=== PATIENT | male | born 1975 | race Two or more races ===

== ENCOUNTER 2017-06-03 12:21 | Emergency (ER) | payer OTHER ==
[~2017-06-03] VITALS: Ht 167.6 cm; Wt 68.0 kg
[2017-06-03] MEDS ORDERED: DIPHTH,PERTUSS(ACELL),TET TOX 0.5 ML DISP.SYRIN. VAX IM ONE (12:45)
[2017-06-03] MEDS ORDERED: IV NORMAL SALINE 1000ML BAG 1,000 ML IV ONE (12:45)
--- NOTE | 2017-06-03 12:55 | PHYS DOC ---
Past Medical History Past Medical History: No Pertinent History Past Surgical History: No Surgical History Alcohol Use: None Drug Use: None Adult General Chief Complaint Chief Complaint: SYNCOPE HPI HPI Patient is a 42 year old male who presents with passing out. Patient states he is in the park with his kids running and stopped to get a drink of water and passed out. Patient woke up on the ground with laceration to the back of the head. Patient states this never happened before. Patient states prior to passing out he became lightheaded and dizzy. Patient denied any chest pain or shortness of breath. Patient denies any abdominal pain. Patient denied any nausea/vomiting/diarrhea. Patient was brought to the hospital for further evaluation however has no complaints in the emergency room. Review of Systems Review of Systems GEN: Denies fevers, chills, sweats HEENT: Denies blurred vision, sore throat CV: Denies chest pain RESP: Denies shortness of air, cough GI: Denies n/v/d NEURO: dizziness MSK: Denies weakness, joint pain/swelling Current Medications Current Medications Current Medications Medications (Trade) Dose Ordered Sig/Anthony Start Time Stop Time Status Last Admin Dose Admin Diphtheria/ Tetanus/Acell Pertussis (Boostrix) 0.5 ml ONCE ONCE 06/03/17 12:45 06/03/17 12:48 DC 06/03/17 13:00 0.5 ML Sodium Chloride 1,000 ml @ 1,000 mls/hr 1X ONCE 06/03/17 12:45 06/03/17 13:44 DC 06/03/17 12:58 1,000 MLS/HR Allergies Allergies Allergies Coded Allergies Type Severity Reaction Last Updated Verified No Known Drug Allergies 06/03/17 No Physical Exam Physical Exam GEN.: No apparent distress. Alert and oriented. HEENT: 3 cm laceration to the right occiput NECK: Supple. LUNGS: CTAB. HEART: RRR, S1, S2 present. Peripheral pulses intact ABDOMEN: Soft, nontender. Positive bowel sounds. EXTREMITIES: Without any cyanosis. Superficial skin abrasions to the left knee and left ankle NEUROLOGIC: Normal speech, normal tone PSYCHIATRIC: Normal affect, normal mood. SKIN: No ulcerations Current Patient Data Vital Signs Vital Signs Date Time Temp Pulse Resp B/P (MAP) Pulse Ox O2 Delivery O2 Flow Rate FiO2 06/03/17 12:38 98.3 67 18 139/84 (102) 93 Room Air 98.3 Lab Values Laboratory Tests Test 06/03/17 12:52 White Blood Count 14.2 x10^3/uL (4.0-11.0) H Red Blood Count 5.60 x10^6/uL (4.30-5.70) Hemoglobin 16.4 g/dL (13.0-17.5) Hematocrit 48.3 % (39.0-53.0) Mean Corpuscular Volume 86 fL (79-100) Mean Corpuscular Hemoglobin 29 pg (25-35) Mean Corpuscular Hemoglobin Concent 34 g/dL (31-37) Red Cell Distribution Width 14.2 % (11.5-14.5) Platelet Count 186 x10^3/uL (140-400) Neutrophils (%) (Auto) 82 % (31-73) H Lymphocytes (%) (Auto) 12 % (24-48) L Monocytes (%) (Auto) 4 % (0-9) Eosinophils (%) (Auto) 1 % (0-3) Basophils (%) (Auto) 1 % (0-3) Neutrophils # (Auto) 11.6 x10^3uL (1.8-7.7) H Lymphocytes # (Auto) 1.8 x10^3/uL (1.0-4.8) Monocytes # (Auto) 0.6 x10^3/uL (0.0-1.1) Eosinophils # (Auto) 0.2 x10^3/uL (0.0-0.7) Basophils # (Auto) 0.1 x10^3/uL (0.0-0.2) Sodium Level 140 mmol/L (136-145) Potassium Level 4.2 mmol/L (3.5-5.1) Chloride Level 104 mmol/L (98-107) Carbon Dioxide Level 29 mmol/L (21-32) Anion Gap 7 (6-14) Blood Urea Nitrogen 15 mg/dL (8-26) Creatinine 1.0 mg/dL (0.7-1.3) Estimated GFR (Cockcroft-Gault) 81.2 Glucose Level 149 mg/dL (70-99) H Calcium Level 9.3 mg/dL (8.5-10.1) Laboratory Tests 06/03/17 12:52 Laboratory Tests 06/03/17 12:52 EKG EKG 1243: EKG shows normal sinus rhythm rate of 59 no STEMI[] Radiology/Procedures Radiology/Procedures Indication: Scalp laceration Procedure: The patient was placed in the appropriate position . The area was then cleaned and washed out. The laceration was closed with 3 jason. The wound area was then dressed with a Band-Aid. Total repaired wound length: 3 cm. Other Items: None The patient tolerated the procedure tolerated. Complications: none[] CT scan of the head shows no acute intracranial abnormality Course & Med Decision Making Course & Med Decision Making Pertinent Labs and Imaging studies reviewed. (See chart for details) ED course: Patient was seen and examined emergency room CT of the head was ordered 1434: Patient had his head stapled and was reexamined and she was feeling much better updated on CT findings he was ready go home. Recommended jason removed in 5-7 days. MDM: After reviewing the chart, CC/HPI/PMH, physical exam, [lab results], [ radiological results], patient does not have an acute intracranial process warranting further workup and/or admission. Patient has small scalp laceration that was repaired with jason in the emergency room at bedside. Patient was reexamined and ready go home. Patient is stable for discharge. Additional verbal discharge instructions were provided to the patient and that if symptoms get worse or any new symptoms arise that are worrisome to the patient he is to return to the emergency room immediately [] Dragon Disclaimer Dragon Disclaimer This electronic medical record was generated, in whole or in part, using a voice recognition dictation system. Departure Departure Impression: Primary Impression: Syncope Additional Impression: Scalp laceration Disposition: 01 HOME, SELF-CARE Condition: IMPROVED Referrals: NO PCP (PCP) Patient Instructions: Laceration Care, Adult, [id number], Syncope, Easy-to- Read Additional Instructions: Recommend following up with your family physician in 5-7 days for staple removal and return if symptoms get worse Problem Qualifiers DENNYS VALERA DO Jun 03, 2017 12:55
[2017-06-03 12:59] LABS: BASO # 0.1 x10^3/uL (0.0-0.2); BASO % 1 % (0-3); EOS % 1 % (0-3); HEMATOCRIT 48.3 % (39.0-53.0); HEMOGLOBIN 16.4 g/dL (13.0-17.5); LYMPH # 1.8 x10^3/uL (1.0-4.8); LYMPH % 12 % (24-48); MEAN CORPUSCULAR HEMOGLOBIN 29 pg (25-35); MEAN CORPUSCULAR HGB CONC 34 g/dL (31-37); MEAN CORPUSCULAR VOLUME 86 fL (79-100); MONO % 4 % (0-9); NEUT % 82 % (31-73); PLATELET COUNT 186 x10^3/uL (140-400); RED CELL DISTRIBUTION WIDTH 14.2 % (11.5-14.5); WHITE BLOOD COUNT 14.2 x10^3/uL (4.0-11.0)
[2017-06-03 13:07] LABS: CALCIUM 9.3 mg/dL (8.5-10.1); GFR 81.2; POTASSIUM 4.2 mmol/L (3.5-5.1)
--- NOTE | 2017-06-03 13:20 | EKG ---
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
--- NOTE | 2017-06-03 14:25 | RAD ---
Examination: CT head and cervical spine without contrast History: History of loss of consciousness with fall when playing outside, posterior laceration. Comparison: None available Technique: Axial CT images of the head was performed without contrast. Axial CT images of the cervical spine was performed without contrast with coronal and sagittal reformats are performed PQRS Compliance Statement: One or more of the following individualized dose reduction techniques were utilized for this examination: 1. Automated exposure control 2. Adjustment of the mA and/or kV according to patient size 3. Use of iterative reconstruction technique Findings: There is no evidence of midline shift. There is no acute intracranial bleed or extra axial fluid collection identified. The haji-white matter differentiation is maintained. Small tiny calcification identified in the left lateral lobe region likely chronic. The visualized lateral ventricles, third ventricle and fourth ventricle are proper for age. The basal cisterns are uneffaced. The vertebral body heights are maintained. The lateral masses of C1 are aligned with C2 vertebra. The C2 dens appears intact. The bilateral facets are well aligned. No evidence of listhesis identified The apical lungs are clear. Impression: 1. No acute intracranial findings. 2. No acute fracture of cervical spine. Correlate clinically.
[2017-06-03 14:43] VITALS: BP 124/76
== END 2017-06-03 14:51 | disposition home or self-care (01) ==
LOC: ER 12:21
DX: S01.01XA Laceration without foreign body of scalp, initial encounter (principal); R55 Syncope and collapse; Y28.8XXA Contact with other sharp object, undetermined intent, initial encounter; Y93.89 Activity, other specified; Y99.8 Other external cause status; Y92.89 Other specified places as the place of occurrence of the external cause
CPT/HCPCS: 12002; 36415; 70450; 72125; 80048; 85025; 90471; 90715; 93005; 96360; 99285; J7030

== ENCOUNTER 2017-06-10 15:13 | Emergency (ER) | payer OTHER ==
[~2017-06-10] VITALS: Ht 165.1 cm; Wt 72.6 kg
[2017-06-10 15:15] VITALS: BP 143/70
--- NOTE | 2017-06-10 15:33 | PHYS DOC ---
Past Medical History Past Medical History: No Pertinent History Past Surgical History: No Surgical History Alcohol Use: None Drug Use: None Adult General Chief Complaint Chief Complaint: SUTURE/STAPLE REMOVAL [facility] HPI Patient is a 42 year old male presents to the emergency department with staple removal. Patient was seen here on 06/03 and had 2 jason placed. Patient states his tetanus immunization is up to date. Denies any drainage or discharge from the site. Denies fever, chills. Review of Systems Review of Systems Constitutional: Denies fever or chills [] Eyes: Denies change in visual acuity, redness, or eye pain [] HENT: Denies nasal congestion or sore throat [] Respiratory: Denies cough or shortness of breath [] Cardiovascular: No additional information not addressed in HPI [] GI: Denies abdominal pain, nausea, vomiting, bloody stools or diarrhea [] : Denies dysuria or hematuria [] Musculoskeletal: Denies back pain or joint pain [] Integument: Denies rash or skin lesions. Here for staple removal Neurologic: Denies headache, focal weakness or sensory changes [] Endocrine: Denies polyuria or polydipsia [] Allergies Allergies Allergies Coded Allergies Type Severity Reaction Last Updated Verified No Known Drug Allergies 06/03/17 No Physical Exam Physical Exam Constitutional: Well developed, well nourished, no acute distress, non-toxic appearance. [] HENT: Normocephalic, atraumatic, bilateral external ears normal, oropharynx moist, no oral exudates, nose normal. [] Eyes: PERRLA, EOMI, conjunctiva normal, no discharge. [] Neck: Normal range of motion, no tenderness, supple, no stridor. [] Cardiovascular:Patient pink warm and dry Lungs & Thorax: Bilateral breath sounds clear to auscultation [] Skin: Warm, dry, no erythema, no rash. 3 jason intact without redness, warmth or drainage noted. Back: No tenderness Extremities: No tenderness, no cyanosis, no clubbing, ROM intact, no edema. [] Neurologic: Alert and oriented X 3, normal motor function, normal sensory function, no focal deficits noted. [] Psychologic: Affect normal, judgement normal, mood normal. [] Current Patient Data Vital Signs Vital Signs Date Time Temp Pulse Resp B/P (MAP) Pulse Ox O2 Delivery O2 Flow Rate FiO2 06/10/17 15:15 98.0 62 18 99 Room Air 98.0 EKG EKG [] Radiology/Procedures Radiology/Procedures [] Course & Med Decision Making Course & Med Decision Making Pertinent Labs and Imaging studies reviewed. (See chart for details) Jason removed with out difficulty. Patient will be discharge home in stable condition. Signs and symptoms of infection was provided to patient. Patient will be discharge home in stable condition. All questions and concerns have been answered at patients bedside. [] Dragon Disclaimer Dragon Disclaimer This electronic medical record was generated, in whole or in part, using a voice recognition dictation system. Departure Departure Impression: Primary Impression: Removal of staple Disposition: HOME, SELF-CARE Condition: STABLE Referrals: NO PCP (PCP) Patient Instructions: Staple Removal, Care After Additional Instructions: Activity as tolerated Keep the area clean and dry Clean the area with soap and water daily Watch for signs and symptoms of infection: redness, warmth, tenderness or any drainage or discharge Followup with primary care provider in 7-10 days Return to emergency department as needed for signs and symptoms that become worse. LEÓN MONTERO PRODUCT DESIGN MANAGER Jun 10, 2017 15:33
== END 2017-06-10 15:35 | disposition home or self-care (01) ==
LOC: ER 15:13
DX: S01.81XD Laceration without foreign body of other part of head, subsequent encounter (principal); X58.XXXD Exposure to other specified factors, subsequent encounter
CPT/HCPCS: 99281